=== PATIENT | male | born 1970 | race Caucasian/White ===

== ENCOUNTER 2018-11-08 11:04 | Emergency (ER) | payer MEDICAID, OTHER ==
[2018-11-08] MEDS ORDERED: ASPIRIN 81 MG TABLET, CHEWABLE PO ONE (11:09)
[2018-11-08] MEDS ORDERED: LORAZEPAM INJ 2 MG/1 ML VIAL IV ONE ×2 (11:21→15:12)
--- NOTE | 2018-11-08 11:26 | ER Document Report ---
ED General - General Stated Complaint: CHEST PAIN Time Seen by Provider: 11/08/18 11:15 - HPI Patient complains to provider of: Chest Pain Notes: Alcoholic male presents with increasing anxiety looking at help with his alcohol addiction. Endorses drinking this morning. States he was having some chest pain as well as 6/10 stabbing in nature without radiation nothing makes it better or worse denies nausea vomiting diarrhea with this chest pain no diaphoresis. Denies history of congestive heart failure coronary artery diseas e. - Related Data Allergies/Adverse Reactions: No Known Allergies Allergy (Unverified 11/08/18 12:06) Past Medical History - Social History Smoking Status: Unknown if Ever Smoked Family History: None Review of Systems - Review of Systems Notes: REVIEW OF SYSTEMS: CONSTITUTIONAL: -fevers, -chills EENT: -eye pain, -difficulty swallowing, -nasal congestion CARDIOVASCULAR: positive chest pain, -syncope. RESPIRATORY: -cough, -SOB GASTROINTESTINAL: -abdominal pain, -nausea, -vomiting, -diarrhea GENITOURINARY: -dysuria, -hematuria MUSCULOSKELETAL: -back pain, -neck pain SKIN: -rash or skin lesions. HEMATOLOGIC: -easy bruising or bleeding. LYMPHATIC: -swollen, enlarged glands. NEUROLOGICAL: -altered mental status or loss of consciousness, -headache, - neurologic symptoms PSYCHIATRIC: positive anxiety, -depression. ALL OTHER SYSTEMS REVIEWED AND NEGATIVE. Physical Exam - Vital signs Vitals: Pulse Ox 98 11/08/18 11:05 - Notes Notes: PHYSICAL EXAMINATION: GENERAL: Well-appearing, well-nourished and in no acute distress. HEAD: Atraumatic, normocephalic. EYES: Pupils equal round and reactive to light, extraocular movements intact, sclera anicteric, conjunctiva are normal. ENT: nares patent, oropharynx clear without exudates. Moist mucous membranes. NECK: Normal range of motion, supple without lymphadenopathy LUNGS: Breath sounds clear to auscultation bilaterally and equal. No wheezes rales or rhonchi. HEART: Regular rate and rhythm without murmurs ABDOMEN: Soft, nontender, normoactive bowel sounds. No guarding, no rebound. No masses appreciated. EXTREMITIES: Normal range of motion, no pitting or edema. No cyanosis. NEUROLOGICAL: Cranial nerves grossly intact. Normal speech, normal gait. Normal sensory and motor exams. PSYCH: Normal mood, normal affect. SKIN: Warm, Dry, normal turgor, no rashes or lesions noted. Course - Re-evaluation Re-evalutation: 11/08/18 15:13 Alcoholic male presents in no acute distress looking for detox. He says his anxiety has been worse. Well-appearing patient no ischemic changes. Patient extensive lab work-up unremarkable negative troponin. Patient given Ativan. 11/08/18 15:14 Contact social work for his placement. Patient will be given resources for outpatient alcohol detox. Given strict return precautions anything should change or worsen please return. Patient observed in our department until sober at 7 PM. - Vital Signs Vital signs: Temp Pulse Resp BP Pulse Ox 98.6 F 20 143/101 H 97 11/08/18 11:59 11/08/18 13:01 11/08/18 13:00 11/08/18 13:01 - Laboratory Result Diagrams: 11/08/18 11:28 11/08/18 11:28 Laboratory results interpreted by me: 11/08/18 11/08/18 11:28 11:28 RDW 14.5 H Sodium 145.2 H Serum Alcohol 319 H* Discharge - Discharge Clinical Impression: Alcohol abuse Condition: Stable Disposition: HOME, SELF-CARE Instructions: Chest Pain of Unclear Cause ([facility]) Additional Instructions: See your PCP
[2018-11-08 11:41] LABS: ABSOLUTE BASOPHILS # (AUTO) 0.1 10^3/uL (0.0-0.2); ABSOLUTE EOSINOPHILS # (AUTO) 0.1 10^3/uL (0.0-0.6); ABSOLUTE LYMPHOCYTES (AUTO) 1.9 10^3/uL (0.5-4.7); ABSOLUTE MONOCYTES (AUTO) 0.7 10^3/uL (0.1-1.4); ABSOLUTE NEUT (AUTO) 4.3 10^3/uL (1.7-8.2); BASOPHILS % (AUTO) 1.3 % (0-2); EOSINOPHILS % (AUTO) 0.7 % (0-6); HEMATOCRIT 44.6 % (37.9-51.0); LYMPHOCYTES % (AUTO) 26.6 % (13-45); MEAN CORPUSCULAR HEMOGLOBIN 32.1 pg (27.0-33.4); MEAN CORPUSCULAR HGB CONC 33.8 g/dL (32.0-36.0); MEAN CORPUSCULAR VOLUME 95 fl (80-97); MONOCYTES % (AUTO) 10.4 % (3-13); PLATELET COUNT 288 10^3/uL (150-450); RED BLOOD COUNT 4.68 10^6/uL (4.35-5.55); RED CELL DISTRIBUTION WIDTH 14.5 % (11.5-14.0); TOTAL CELLS COUNTED % (AUTO) 100 %; WHITE BLOOD COUNT 7.1 10^3/uL (4.0-10.5)
[2018-11-08 11:59] LABS: ALBUMIN 4.2 g/dL (3.5-5.0); ALKALINE PHOSPHATASE 107 U/L (38-126); ANION GAP 10 (5-19); ASPARTATE AMINO TRANSFERASE 50 U/L (17-59); BILIRUBIN,DIRECT 0.1 mg/dL (0.0-0.4); BILIRUBIN,TOTAL 0.2 mg/dL (0.2-1.3); BLOOD UREA NITROGEN 10 mg/dL (7-20); CALCIUM 9.6 mg/dL (8.4-10.2); CARBON DIOXIDE 28 mmol/L (22-30); CHLORIDE 107 mmol/L (98-107); CREATINE KINASE 57 U/L (55-170); GLUCOSE 81 mg/dL (75-110); POTASSIUM 4.2 mmol/L (3.6-5.0); TOTAL PROTEIN 7.3 g/dL (6.3-8.2)
[2018-11-08 12:10] LABS: CREATINE KINASE MB 0.38 ng/mL (<4.55)
[2018-11-08 12:17] LABS: ALCOHOL 319 mg/dL (NONE DETECTED)
[2018-11-08 12:18] LABS: TROPONIN I < 0.012 ng/mL
--- NOTE | 2018-11-08 12:21 | EKG REPORT ---
SEVERITY:- BORDERLINE ECG - SINUS TACHYCARDIA BORDERLINE PROLONGED QT INTERVAL : Confirmed by: Omega Aparicio MD 08-Nov-2018 12:21:30
[2018-11-08] MEDS ORDERED: NORMAL SALINE 1000 ML 1,000 ML IV ONE (17:18)
[2018-11-08 19:30] VITALS: BP 166/113
== END 2018-11-08 19:15 | disposition home or self-care (01) ==
LOC: EDBD → ER 11:04
DX: F10.10 Alcohol abuse, uncomplicated (principal); R07.9 Chest pain, unspecified; F41.9 Anxiety disorder, unspecified
CPT/HCPCS: 93005; 36415; 82553; 80307; 82550; 85025; 80053; 84484; 93010; J2060; J7030

== ENCOUNTER 2018-11-09 13:59 | Emergency (ER) | payer OTHER ==
[2018-11-09] MEDS ORDERED: NORMAL SALINE 1000 ML 1,000 ML IV ONE (14:39)
--- NOTE | 2018-11-09 14:39 | ER Document Report ---
ED Medical Screen (RME) - General Chief Complaint: ETOH Abuse Stated Complaint: ETOH Time Seen by Provider: 11/09/18 14:29 Notes: Patient is a 47-year-old male who presents emergency department for inquiry for alcohol detox. He was offered help yesterday here in the emergency department, but decided he did not want help and now states that it was a mistake. His last drink was at midnight last night. The only complaints he has are some pa lpitations. Exam: S1-S2. Tachycardia. I have greeted and performed a rapid initial assessment of this patient. A comprehensive ED assessment and evaluation of the patient, analysis of test results and completion of medical decision making process will be conducted by an additional ED providers. TRAVEL OUTSIDE OF THE [place] IN LAST 30 DAYS: No - Related Data Allergies/Adverse Reactions: No Known Allergies Allergy (Verified 11/09/18 14:02) Past Medical History - Social History Chew tobacco use (# tins/day): No Frequency of alcohol use: Heavy Drug Abuse: Marijuana - Past Medical History Cardiac Medical History: Reports: Hx Hypercholesterolemia, Hx Hypertension GI Medical History: Reports: Hx Gastroesophageal Reflux Disease Psychiatric Medical History: Reports: Hx Depression Physical Exam - Vital signs Vitals: Temp Pulse Resp BP Pulse Ox 98.4 F 124 H 17 183/103 H 96 11/09/18 14:03 11/09/18 14:03 11/09/18 14:03 11/09/18 14:03 11/09/18 14:03 Course - Vital Signs Vital signs: Temp Pulse Resp BP Pulse Ox 98.4 F 124 H 17 183/103 H 96 11/09/18 14:03 11/09/18 14:03 11/09/18 14:03 11/09/18 14:03 11/09/18 14:03
[2018-11-09 15:25] LABS: APPEARANCE,URINE CLEAR; BILIRUBIN,URINE NEGATIVE (NEGATIVE); COLOR,URINE YELLOW; GLUCOSE, URINE NEGATIVE (NEGATIVE); KETONES,URINE TRACE mg/dL (NEGATIVE); LEUKOCYTE ESTERASE,URINE NEGATIVE (NEGATIVE); NITRITE,URINE NEGATIVE (NEGATIVE); PROTEIN,URINE NEGATIVE (NEGATIVE); URINE SPECIFIC GRAVITY 1.012; UROBILINOGEN,URINE NEGATIVE mg/dL (<2.0)
--- NOTE | 2018-11-09 15:26 | ER Document Report ---
ED Substance Abuse / Acc. OD - General Chief Complaint: ETOH Abuse Stated Complaint: ETOH Time Seen by Provider: 11/09/18 14:29 Mode of Arrival: Ambulatory Information source: Patient TRAVEL OUTSIDE OF THE [place] IN LAST 30 DAYS: No - HPI Patient complains to provider of: Alcohol abuse - pt here last night for alcohol abuse, reaquesting detox was seen by mental health/social work who had him placed in a facility last night but pt. decided to go home instead and starting drinking again. He realizes this was a mistake, and is requesting detox once again. Denies CP, SOB - Related Data Allergies/Adverse Reactions: No Known Allergies Allergy (Verified 11/09/18 14:02) Past Medical History - General Information source: Patient - Social History Smoking Status: Current Every Day Smoker Chew tobacco use (# tins/day): No Frequency of alcohol use: Heavy Drug Abuse: Marijuana Family History: None Patient has suicidal ideation: No Patient has homicidal ideation: No - Past Medical History Cardiac Medical History: Reports: Hx Hypercholesterolemia, Hx Hypertension GI Medical History: Reports: Hx Gastroesophageal Reflux Disease Psychiatric Medical History: Reports: Hx Depression Review of Systems - Review of Systems Constitutional: No symptoms reported EENT: No symptoms reported Cardiovascular: No symptoms reported Respiratory: No symptoms reported Gastrointestinal: No symptoms reported Musculoskeletal: No symptoms reported Neurological/Psychological: No symptoms reported -: Yes All other systems reviewed and negative Physical Exam - Vital signs Vitals: Temp Pulse Resp BP Pulse Ox 98.4 F 124 H 17 183/103 H 96 11/09/18 14:03 11/09/18 14:03 11/09/18 14:03 11/09/18 14:03 11/09/18 14:03 - General General appearance: Appears well In distress: None - HEENT Head: Normocephalic Mucous membranes: Normal Pharynx: Normal Neck: Normal - Respiratory Respiratory status: No respiratory distress Breath sounds: Normal - Cardiovascular Rhythm: Regular Heart sounds: Normal auscultation Murmur: No - Abdominal Inspection: Normal Tenderness: Nontender - Neurological Neuro grossly intact: Yes Cognition: Normal Orientation: AAOx4 Course - Re-evaluation Re-evalutation: 11/09/18 18:55 pt. feels better aft3r meds -- he will walk over to [place] with assistance - Vital Signs Vital signs: Temp Pulse Resp BP Pulse Ox 98.4 F 124 H 23 H 148/105 H 98 11/09/18 14:03 11/09/18 14:03 11/09/18 18:11 11/09/18 18:11 11/09/18 15:18 - Laboratory Result Diagrams: 11/09/18 14:56 11/09/18 14:56 Laboratory results interpreted by me: 11/09/18 11/09/18 11/09/18 14:56 14:56 14:56 WBC 11.3 H RDW 14.1 H Absolute Neuts (auto) 9.1 H Seg Neutrophils % 80.9 H Urine Ketones TRACE H Salicylates < 1.0 L Acetaminophen < 10 L - EKG Interpretation by Me EKG shows normal: Sinus rhythm Rate: Tachycardia - sinus tach without acute change Discharge - Discharge Clinical Impression: Alcohol abuse Condition: Stable Disposition: OTHER Additional Instructions: rest, continue meds, return if worse Referrals: RACHELLE STUART MD [ACTIVE STAFF] - Follow up as needed
[2018-11-09 15:31] LABS: ABSOLUTE BASOPHILS # (AUTO) 0.1 10^3/uL (0.0-0.2); ABSOLUTE LYMPHOCYTES (AUTO) 1.5 10^3/uL (0.5-4.7); ABSOLUTE MONOCYTES (AUTO) 0.6 10^3/uL (0.1-1.4); ABSOLUTE NEUT (AUTO) 9.1 10^3/uL (1.7-8.2); BASOPHILS % (AUTO) 0.8 % (0-2); EOSINOPHILS % (AUTO) 0.2 % (0-6); HEMATOCRIT 41.7 % (37.9-51.0); HEMOGLOBIN 14.4 g/dL (13.5-17.0); LYMPHOCYTES % (AUTO) 13.1 % (13-45); MEAN CORPUSCULAR HEMOGLOBIN 32.7 pg (27.0-33.4); MEAN CORPUSCULAR HGB CONC 34.6 g/dL (32.0-36.0); MEAN CORPUSCULAR VOLUME 95 fl (80-97); PLATELET COUNT 271 10^3/uL (150-450); RED BLOOD COUNT 4.41 10^6/uL (4.35-5.55); RED CELL DISTRIBUTION WIDTH 14.1 % (11.5-14.0); SEGMENTED NEUTROPHILS % (AUTO) 80.9 % (42-78); TOTAL CELLS COUNTED % (AUTO) 100 %; WHITE BLOOD COUNT 11.3 10^3/uL (4.0-10.5)
[2018-11-09 15:44] LABS: ALBUMIN 4.2 g/dL (3.5-5.0); ALKALINE PHOSPHATASE 117 U/L (38-126); ANION GAP 10 (5-19); ASPARTATE AMINO TRANSFERASE 49 U/L (17-59); BILIRUBIN,DIRECT 0.2 mg/dL (0.0-0.4); BILIRUBIN,TOTAL 0.7 mg/dL (0.2-1.3); BLOOD UREA NITROGEN 7 mg/dL (7-20); CALCIUM 9.7 mg/dL (8.4-10.2); CARBON DIOXIDE 26 mmol/L (22-30); CHLORIDE 103 mmol/L (98-107); GLUCOSE 103 mg/dL (75-110); POTASSIUM 4.4 mmol/L (3.6-5.0); TOTAL PROTEIN 7.5 g/dL (6.3-8.2)
[2018-11-09 15:45] LABS: URINE AMPHETAMINES SCREEN NEGATIVE; URINE BARBITURATES SCREEN NEGATIVE; URINE BENZODIAZEPINES SCREEN UNCONFIRMED POSITIVE; URINE COCAINE SCREEN NEGATIVE; URINE MARIJUANA (THC) SCREEN UNCONFIRMED POSITIVE; URINE METHADONE SCREEN NEGATIVE; URINE PHENCYCLIDINE SCREEN NEGATIVE
[2018-11-09 15:48] LABS: ACETAMINOPHEN < 10 ug/mL (10-30); ALCOHOL < 10 mg/dL (NONE DETECTED); SALICYLATE < 1.0 mg/dL (2.0-20.0)
[2018-11-09] MEDS ORDERED: HALOPERIDOL LACTATE INJ 5 MG/1 ML VIAL IM ONE (16:31)
--- NOTE | 2018-11-09 17:01 | PSYCHOLOGICAL NOTE ---
Psych Note - Psych Note Date seen by psych provider: 11/09/18 Time seen by psych provider: 16:05 Psych Note: pt here last night for alcohol abuse, re-questing detox was seen by mental health/social work who had him placed in a facility last night but pt. decided to go home instead and starting drinking again. He realizes this was a mistake, and is requesting detox once again. Alcohol abuse Medication recommendations per [facility]'s contracted psychiatrist Dr. Carlota COHEN are as follows Haldol 5 mg once Impression\plan: Patient is cleared from acute psychiatric services. Patient reports wanting assistance in detox. Patient denies any suicidal and homicidal ideation. Behavioral health team contacted [facility]; there is currently a bed available. Patient is highly encouraged to follow through with this voluntary placement. Dr. Rick is consulted to care management of this patient; attending physicians in agreement with recommendations and disposition.
[2018-11-09] MEDS ORDERED: LABETALOL HCL INJ 20 MG/4 ML DISP.SYRIN IV ONE ×2 (17:06→18:12)
[2018-11-09] MEDS ORDERED: CLONIDINE HCL 0.2 MG TABLET PO ONE (17:06)
--- NOTE | 2018-11-09 18:29 | EKG REPORT ---
SEVERITY:- ABNORMAL ECG - SINUS TACHYCARDIA BORDERLINE PROLONGED QT INTERVAL LA ABNORMALITY : Confirmed by: Omega Aparicio MD 09-Nov-2018 18:28:50
[2018-11-09] MEDS ORDERED: ALPRAZOLAM 0.5 MG TABLET PO ONE (18:30)
[2018-11-09 19:12] VITALS: BP 150/103
== END 2018-11-09 19:14 | disposition other institution (70) ==
LOC: ER 13:59
DX: F10.10 Alcohol abuse, uncomplicated (principal); F17.200 Nicotine dependence, unspecified, uncomplicated; F12.10 Cannabis abuse, uncomplicated; I10 Essential (primary) hypertension; R00.0 Tachycardia, unspecified
CPT/HCPCS: 93005; 96376; 99285; 96372; 96361; 96374; 36415; 80307 ×4; 83735; 85025; 80053; 81001; 93010; J1630; J3490; J7030